=== PATIENT | female | born 1950 | race Caucasian/White ===

== ENCOUNTER 2018-05-24 16:51 | Inpatient (IN) | payer MEDICARE, MEDICAID ==
[~2018-05-24] VITALS: Ht 157.5 cm; Wt 64.8 kg
[2018-05-24 17:11] VITALS: BP 144/52
[2018-05-24] MEDS ORDERED: PRAVACHOL40 MG PO (17:19)
[2018-05-24 18:08] LABS: HEMATOCRIT 37.8 % (37.0-47.0); HEMOGLOBIN 12.5 gm/dL (12.0-15.0); MCH 31.2 pg (26.0-34.0); MCV 94.6 fL (80.0-100.0); MPV 8.8 fl. (7.2-11.1); NUCLEATED RBCS 0 /100WBC; PLATELET COUNT* 231 thou/uL (150-400); RBC 3.99 mil/uL (4.20-5.00); RDW-CV 15.6 % (10.5-14.5)
[2018-05-24 18:25] LABS: CALCIUM 8.9 mg/dL (8.5-10.1); CREATININE 0.9 mg/dL (0.6-1.3); POTASSIUM 3.9 mmol/L (3.5-5.1); TOTAL BILIRUBIN 0.6 mg/dL (<0.1-1.0); TOTAL PROTEIN 6.6 g/dL (6.4-8.2)
[2018-05-24 18:35] LABS: ABSOLUTE EOSINOPHILS 0.4 thou/uL (0.0-0.7); ABSOLUTE LYMPHOCYTES 8.6 thou/uL (0.8-5.3); ABSOLUTE MONOCYTES 1.5 thou/uL (0.0-1.2); ABSOLUTE NEUTROPHILS 10.5 thou/uL (1.6-8.1); PLATELET ESTIMATE ADEQUATE
[2018-05-24 19:55] VITALS: BP 134/54
[2018-05-24 20:10] VITALS: BP 157/53
[2018-05-25] VITALS: BP 101/40
[2018-05-25 04:00] VITALS: BP 110/39
--- NOTE | 2018-05-25 07:59 | NUR ---
Admit at 1953 last evening. She is admitted with pneumonia. Lungs are coarse and have crackles and she has wheezes. She is coughing up some yellowish-greenish stuff. She is up with assist x 1 with gaitbelt and cane to bedside commode. She is getting Rocephin and Zithromax antibiotics daily. She did pain med x 1 last evening. Vitals are stable. She states she is feeling better this am. She is mentally delayed and lives with her sister Latoya. She has slept well this shift.
[2018-05-25 08:30] VITALS: BP 101/43
--- NOTE | 2018-05-25 17:45 | NUR ---
ASSUMED CARE OF PT AT 0700. PT HAS MENTAL DELAY NOTED, IS ABLE TO EXPRESS NEEDS AND CARES. PT UP WITH STAND BY ASSIST, GAIT BELT AND CANE USED FOR AMBULATORY AIDES. ABT GIVEN ORDERED. NO C/O AT THIS TIME, CALL LIGHT IN REACH. WILL CONT TO MONITOR.
[2018-05-25 18:07] VITALS: BP 123/72
[2018-05-25 20:45] VITALS: BP 124/51
[2018-05-26 04:16] LABS: ABSOLUTE BASOPHILS 0.1 thou/uL (0.0-0.2); ABSOLUTE EOSINOPHILS 0.5 thou/uL (0.0-0.7); ABSOLUTE LYMPHOCYTES 4.1 thou/uL (0.8-5.3); ABSOLUTE MONOCYTES 0.9 thou/uL (0.0-1.2); ABSOLUTE NEUTROPHILS 7.4 thou/uL (1.6-8.1); BASOPHILS 0.5 %; HEMATOCRIT 35.3 % (37.0-47.0); HEMOGLOBIN 11.7 gm/dL (12.0-15.0); LYMPHOCYTES 31.8 %; MCH 31.2 pg (26.0-34.0); MCHC 33.2 g/dL (28.0-37.0); MCV 93.9 fL (80.0-100.0); MONOCYTES 6.7 %; MPV 8.7 fl. (7.2-11.1); NUCLEATED RBCS 0 /100WBC; PLATELET COUNT* 244 thou/uL (150-400); RBC 3.75 mil/uL (4.20-5.00); RDW-CV 15.3 % (10.5-14.5); WBC 12.9 thou/uL (4.0-11.0)
[2018-05-26 04:27] LABS: CREATININE 0.8 mg/dL (0.6-1.3); POTASSIUM 3.8 mmol/L (3.5-5.1)
--- NOTE | 2018-05-26 05:49 | NUR ---
PATIENT HAS SLEPT WELL THROUGHOUT THE NIGHT. VSS ON RA. NO C/O PAIN. PATIENT IS UP WITH ASSIST X 1 WITH CANE TO BSC. IV IN LEFT HAND-NS @ 100ML/HR. PATIENT VERY PLEASANT. PATIENT INSTRUCTED TO USE CALL LIGHT WHEN NEEDING ASSISTANCE. HOURLY ROUNDS MADE. WILL CONTINUE WITH PLAN OF CARE AND NURSING TO MONITOR.
[2018-05-26 08:30] VITALS: BP 152/76
[2018-05-26 14:59] LABS: INFLUENZA A ANTIGEN None Detected (None Detect); INFLUENZA B ANTIGEN None Detected (None Detect)
--- NOTE | 2018-05-26 17:32 | NUR ---
PT REMAINED ALERT AND ORIENTED. PT HAD FLU SHOT TODAY, FELT WOOZY AFTER, GAVE ZOFRAN AND COOL CLOTHS. THIS PROVIDED RELIEF. PT IV INFILTRATED. NEW IV IN LT HAND. FALL RISK PRECAUTIONS IN PLACE. HOURLY ROUNDING COMPLETED. WILL CONTINUE TO MONITOR.
[2018-05-26 18:15] VITALS: BP 165/72
[2018-05-27 04:40] LABS: ABSOLUTE BASOPHILS 0.1 thou/uL (0.0-0.2); ABSOLUTE EOSINOPHILS 0.6 thou/uL (0.0-0.7); ABSOLUTE LYMPHOCYTES 3.4 thou/uL (0.8-5.3); ABSOLUTE MONOCYTES 0.8 thou/uL (0.0-1.2); ABSOLUTE NEUTROPHILS 3.6 thou/uL (1.6-8.1); BASOPHILS 1.1 %; EOSINOPHILS 7.5 %; HEMATOCRIT 36.5 % (37.0-47.0); HEMOGLOBIN 12.2 gm/dL (12.0-15.0); LYMPHOCYTES 40.5 %; MCH 31.1 pg (26.0-34.0); MCHC 33.3 g/dL (28.0-37.0); MCV 93.5 fL (80.0-100.0); MONOCYTES 8.9 %; MPV 8.6 fl. (7.2-11.1); NUCLEATED RBCS 0 /100WBC; PLATELET COUNT* 288 thou/uL (150-400); RBC 3.91 mil/uL (4.20-5.00); RDW-CV 15.4 % (10.5-14.5); WBC 8.5 thou/uL (4.0-11.0)
[2018-05-27 05:00] LABS: CALCIUM 8.2 mg/dL (8.5-10.1); CREATININE 0.8 mg/dL (0.6-1.3); POTASSIUM 3.9 mmol/L (3.5-5.1)
[2018-05-27 07:30] VITALS: BP 169/76
--- NOTE | 2018-05-27 07:55 | NUR ---
PATIENT HAS SLEPT WELL THROUGHOUT THE NIGHT. VSS ON RA. NO C/O PAIN. PATIENT UP TO THE BSC WITH ASSIST X 1 WITH CANE. IV IN LEFT WRIST-NS @ 100ML/HR. FALL PRECAUTIONS IN PLACE AND HOURLY ROUNDS MADE. WILL CONTINUE WITH PLAN OF CARE AND NURSING TO MONITOR.
[2018-05-27] MEDS ORDERED: AUGMENTIN 875-1 EACH PO (11:23)
[2018-05-27] MEDS ORDERED: MUCINEX600 MG PO (11:25)
[2018-05-27 11:27] VITALS: BP 169/76
[2018-05-27 12:31] VITALS: BP 191/75
[2018-05-27 13:20] VITALS: BP 169/76
--- NOTE | 2018-05-27 13:34 | NUR ---
CM ATTEMPTED TO SPEAK WITH PT. ONE HR.AGO. SHE SAID SHE WANTED TO WAIT FOR WHEN HER SISTER GOT HERE. SISTER ,GATITO, CAME TO NURSES STATION AT THIS TIME. DISCUSSED HOME HEALTH WITH HER. SHE SAID THEY ARE IN THE MIDDLE OF PAINTING THE INSIDE OF THEIR HOME TO GET READY TO MOVE. THEY ARE MOVING BECAUSE PT.CANNOT NAVIGATE ALL THE STAIRS THAT ARE IN THEIR PRESENT HOUSE. SHE FEELS IT WOULD BE TOO MUCH OF A MESS TO HAVE SOMEONE COME IN. SHE WAS AGREEABLE TO DOING OUTPT.THERAPY. SHE CHOSE [facility] ([facility] PHYSICAL THERAPY. INFORMATION PUT ON DISCHARGE INSTRUCTION SHEET. FAXED FACE SHEET AND H&P/ORDER TO [facility] THEY WILL CALL PT.TO SET UP APPTS. PT.LIVES WITH SISTER AND NIECE AND NIECES . SHE USES A CANE. SISTER SAID SHE IS INDEPENDENT WITH BATHEING AND DRESSING. SHE ASSISTS AROUND THE HOUSE IF SHE CAN SIT DOWN. IS DIFFICULT FOR HER TO WALK.
--- NOTE | 2018-05-27 13:51 | NUR ---
PT IV REMOVED. BLEONGINGS GATHERED. PRESCRIPTIONS, [facility]CRAGE INFORMATION, AND CARE NOTES GIVEN. FALL RISK PRECAUTIONS IN PLACE. HOURLY ROUNDING COMPLETED. PT LEFT VIA WHEELCHAIR WITH NURSING STAFF TO HOME WITH OUT PATIENT THERAPY.
== END 2018-05-27 13:53 | disposition home or self-care (01) | DRG 871 ==
LOC: M.ERS 16:51 → M.TBA-ER 18:12 → M.ORTHSURG 18:12
PROVIDERS: Internal Medicine; Nurse Practitioner; ADMIT Internal Medicine
DX: A41.9 Sepsis, unspecified organism (principal); J15.6 Pneumonia due to other Gram-negative bacteria; J96.00 Acute respiratory failure, unspecified whether with hypoxia or hypercapnia; E87.2 Acidosis; I10 Essential (primary) hypertension; E78.5 Hyperlipidemia, unspecified; Z90.49 Acquired absence of other specified parts of digestive tract; Z79.899 Other long term (current) drug therapy; Z23 Encounter for immunization